=== PATIENT | female | born 1945 | race Caucasian/White ===

== ENCOUNTER 2017-04-22 10:44 | Day surgery (SDC) | payer MEDICARE, OTHER ==
[2017-04-22] MEDS ORDERED: OMEPRAZOLE20 M3 PO (11:35)
[2017-04-22] MEDS ORDERED: SYNTHROID112 MC1 PO (11:35)
[2017-04-22] MEDS ORDERED: FENOFIBRIC ACI135 M1 PO (11:36)
[2017-04-22 12:25] LABS: ANION GAP 16 mmol/L (0-20); BLOOD UREA NITROGEN 20 mg/dl (6-24); CALCIUM 9.5 mg/dl (8.5-10.5); CARBON DIOXIDE-VENOUS 23 mmol/L (22-32); CHLORIDE 103 mmol/l (96-110); CREATININE 1.06 mg/dl (0.50-1.10); GLUCOSE 122 mg/dL (70-110); POTASSIUM 4.2 mmol/L (3.7-5.1); SODIUM 138 mmol/L (135-145); eGFR VALUE FOR BLACK 60 mL/Min
== END 2017-04-22 15:23 ==
LOC: EDMED 10:44 → SRG 13:38
PROVIDERS: Emergency Medicine
PROC: 0DC58ZZ Extirpation of Matter from Esophagus, Via Natural or Artificial Opening Endoscopic (ICD-10-PCS; principal; 2017-04-22)
DX: T18.128A Food in esophagus causing other injury, initial encounter (principal); K22.2 Esophageal obstruction; K44.9 Diaphragmatic hernia without obstruction or gangrene; E03.9 Hypothyroidism, unspecified; M79.7 Fibromyalgia; E78.5 Hyperlipidemia, unspecified; K21.9 Gastro-esophageal reflux disease without esophagitis; Z79.899 Other long term (current) drug therapy; Z90.89 Acquired absence of other organs; Z98.51 Tubal ligation status; Z98.890 Other specified postprocedural states; X58.XXXA Exposure to other specified factors, initial encounter
CPT/HCPCS: G0500; J2250; J3010; J7030